=== PATIENT | female | born 1945 | race Caucasian/White ===

== ENCOUNTER → 2023-05-22 | Outpatient (CLI) | payer MEDICARE ==
--- NOTE | 2023-05-22 10:28 | MR ---
EXAMINATION TYPE: MR shoulder RT wo con DATE OF EXAM: 05/22/2023 COMPARISON: None HISTORY: Right shoulder pain x8 months, Evaluate rotor cuff tear TECHNIQUE: Multiplanar, multisequence imaging of the right shoulder is performed without contrast. FINDINGS: Rotator Cuff: There is diffuse tendinopathy of the distal 2.2 cm of the supraspinatus tendon. There i s no evidence of retraction. At the insertion there is a 2 mm partial through thickness tear of the a nterior fibers. Along the undersurface of the distal infraspinatus tendon extending to the insertion for a length of 1.6 cm there is diffuse abnormal signal compatible severe tendinosis and partial intrasubstance tear. No full-thickness tear or retraction. Subscapularis tendon demonstrates increased signal at its insertion pedicle with tendinosis. Difficul t to exclude intrasubstance tear. Acromioclavicular Joint: Severe AC joint arthropathy. Small amount of fluid in the subacromial bursa. There is mild mass effect upon the supraspinatus Glenohumeral Joint: Humeral head is somewhat high riding in position and there is mild glenohumeral j oint arthropathy. Inferior glenohumeral ligament is intact. There is a small joint effusion. Labrum: There is increased intrasubstance signal involving the superior labrum suspicious for SLAP te ar. Biceps Tendon: The long head of biceps is in normal location within bicipital groove. However there i s thickening and increased intrasubstance signal of the biceps tendon as it extends through the rotat or interval to the level of the superior labrum. 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 IMPRESSION: 1. 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 Suspect a small 3 mm through thickness tear of the anterior fibers at the insertion. No retraction. 2.Severe long segmental tendinosis of the infraspinatus tendon with intrasubstance tears. No through thickness tear or retraction. 3. Thickening and increased signal of the distal margin of the biceps tendon as it extends through th e rotator interval to the level of the biceps anchor. Severe tendinosis with split tear suspected. 4. SLAP tear
== END | disposition home or self-care (01) ==
LOC: RADMRIMAIN 09:03
PROVIDERS: ATTEND Orthopaedic Surgery
DX: M67.813 Other specified disorders of tendon, right shoulder (principal); M75.101 Unspecified rotator cuff tear or rupture of right shoulder, not specified as traumatic